=== PATIENT | female | born 1960 | race African-American/Black ===

== ENCOUNTER 2017-11-14 08:28 | Emergency (ER) | payer MEDICAID ==
[~2017-11-14] VITALS: Ht 165.1 cm; Wt 90.0 kg
[2017-11-14] MEDS ORDERED: CETI-101 PO (08:36)
[2017-11-14] MEDS ORDERED: GLIP5TAB12 PO (08:36)
[2017-11-14] MEDS ORDERED: METF500T4 PO (08:36)
[2017-11-14] MEDS ORDERED: ACETAMINOPHEN 325MG TABLET PO STA (08:59)
[2017-11-14 11:11] LABS: BASOPHILS % 0.2 % (0.0-2.0); EOSINOPHILS % 1.2 % (0.0-5.0); HEMATOCRIT. 35.4 % (36.0-48.0); HEMOGLOBIN. 11.4 g/dL (12.0-16.0); LYMPHOCYTES % 15.1 % (20.0-50.0); MEAN CORPUSCULAR HEMOGLOBIN 26.4 pg (28.0-32.0); MONOCYTES % 4.5 % (2.0-8.0); PLATELET 398 x1000/uL (130-400); RED BLOOD CELL COUNT 4.31 mill/uL (4.2-5.4); RED CELL DISTRIBUTION WIDTH 13.9 % (11.6-14.6)
[2017-11-14 11:16] LABS: PROTHROMBIN TIME 10.9 sec (9.4-11.6)
[2017-11-14] MEDS ORDERED: KETOROLAC 30MG/ML VIAL IM ONE (11:30)
[2017-11-14 11:41] LABS: CHLORIDE 105 mEq/L (98-107)
[2017-11-14 12:26] VITALS: BP 142/69
[2017-11-15] MEDS ORDERED: LIDOCAINE 5% PATCH TOP SCH (09:00)
== END 2017-11-14 12:41 | disposition home or self-care (01) ==
LOC: EDBD 08:40 → ER 08:40
DX: S39.012A Strain of muscle, fascia and tendon of lower back, initial encounter (principal); S16.1XXA Strain of muscle, fascia and tendon at neck level, initial encounter; S60.221A Contusion of right hand, initial encounter; S20.219A Contusion of unspecified front wall of thorax, initial encounter; S30.1XXA Contusion of abdominal wall, initial encounter; I10 Essential (primary) hypertension; E11.9 Type 2 diabetes mellitus without complications; K76.0 Fatty (change of) liver, not elsewhere classified; E05.90 Thyrotoxicosis, unspecified without thyrotoxic crisis or storm; N28.1 Cyst of kidney, acquired; J45.909 Unspecified asthma, uncomplicated; Z79.84 Long term (current) use of oral hypoglycemic drugs; V43.52XA Car driver injured in collision with other type car in traffic accident, initial encounter; Y93.89 Activity, other specified; Y92.488 Other paved roadways as the place of occurrence of the external cause
CPT/HCPCS: 36415; 71045; 72100; 73130; 74176; 80048; 85025; 85610; 96372; 99285; J1885; Z7610